=== PATIENT | female | born 1975 | race Caucasian/White ===

== ENCOUNTER 2016-11-22 09:37 | Emergency (ER) | payer OTHER ==
[~2016-11-22] VITALS: Ht 154.9 cm; Wt 67.7 kg
[~2016-11-22 09:37] MED LIST: HYDR25 PO; LORA0.5T PO; PROZ20CA11 PO
[2016-11-22 09:40] VITALS: BP 157/114; PULSE 119; RESP 16; TEMP 97.7; O2SAT 97
--- NOTE | 2016-11-22 09:51 | PD ---
HPI Chief Complaint: GI Complaint Time Seen by Provider: 09:44 Travel History International Travel<30 days: No Contact w/Intl Traveler<30days: No Traveled to known affect area: No History of Present Illness HPI The patient was seen and examined in the presence of the nurse. An alcoholic who had quit drinking but restarted drinking again. She drank a pint of vodka last night. Denies alcohol today. She complains of vomiting for 24 hours. Also having some diarrhea. No fever. Symptoms severity is moderate. No alleviating factors. PFSH Past Medical History Hx Anticoagulant Therapy: No Anxiety: Yes Diabetes: No Diminished Hearing: No Tetanus Vaccination: < 5 Years Influenza Vaccination: No ?: Not LMP: NOW Social History Alcohol Use: Yes (pint of vodka 24 hours ago) Tobacco Use: Yes Substance Use: No Allergies-Medications (Allergen,Severity, Reaction): Coded Allergies: No Known Allergies (Unverified , 11/22/16) Reported Meds & Prescriptions Reported Meds & Active Scripts Active No Active Prescriptions or Reported Medications Review of Systems General / Constitutional: No: Fever Eyes: No: Visual changes HENT: No: Headaches Cardiovascular: No: Chest Pain or Discomfort Respiratory: No: Shortness of Breath Gastrointestinal: Positive: Nausea, Vomiting, Diarrhea Genitourinary: No: Dysuria Musculoskeletal: No: Pain Skin: No Rash Neurologic: No: Weakness Psychiatric: Positive: Substance Abuse, No: Depression Endocrine: No: Polydipsia Hematologic/Lymphatic: No: Easy Bruising Physical Exam Narrative GENERAL: Well-nourished, well-developed patient with nausea and vomiting . SKIN: Focused skin assessment reveals no rash and nodules. Skin is Warm and dry. HEAD: Atraumatic. Normocephalic. EYES: Pupils equal and round. No scleral icterus. No injection or drainage. ENT: No nasal bleeding or discharge. Mucous membranes pink and moist. NECK: Trachea midline. No JVD. CARDIOVASCULAR: Regular rate and rhythm. No murmur appreciated. RESPIRATORY: No accessory muscle use. Clear to auscultation. Breath sounds equal bilaterally. GASTROINTESTINAL: Abdomen soft, non-tender, nondistended. Hepatic and splenic margins not palpable. MUSCULOSKELETAL: No obvious deformities. No clubbing. No cyanosis. No edema. NEUROLOGICAL: Awake and alert. No obvious cranial nerve deficits. Motor grossly within normal limits. Normal speech. PSYCHIATRIC: Appropriate mood and affect; insight and judgment poor. Data Data Last Documented VS Vital Signs Date Time Temp Pulse Resp B/P Pulse Ox O2 Delivery O2 Flow Rate FiO2 11/22/16 11:29 86 16 135/95 99 Room Air 11/22/16 09:40 97.7 Orders Iv Access Insert/Monitor (11/22/16 09:48) Complete Blood Count With Diff (11/22/16 09:48) Comprehensive Metabolic Panel (11/22/16 09:48) Beta Hcg (Quant/Titer) (11/22/16 09:48) Ondansetron Inj (Zofran Inj) (11/22/16 10:00) Sodium Chlor 0.9% 1000 Ml Inj (Ns 1000 M (11/22/16 10:00) Lipase (11/22/16 09:48) Lorazepam Inj (Ativan Inj) (11/22/16 10:45) Ondansetron Inj (Zofran Inj) (11/22/16 10:45) Morphine Inj (Morphine Inj) (11/22/16 10:45) Sodium Chlor 0.9% 1000 Ml Inj (Ns 1000 M (11/22/16 10:45) Alcohol (Ethanol) (11/22/16 09:57) Morphine Inj (Morphine Inj) (11/22/16 10:53) Labs Laboratory Tests Test 11/22/16 09:57 White Blood Count 11.0 TH/MM3 Red Blood Count 5.00 MIL/MM3 Hemoglobin 15.2 GM/DL Hematocrit 46.2 % Mean Corpuscular Volume 92.3 FL Mean Corpuscular Hemoglobin 30.5 PG Mean Corpuscular Hemoglobin 33.0 % Concent Red Cell Distribution Width 16.5 % Platelet Count 112 TH/MM3 Mean Platelet Volume 8.1 FL Neutrophils (%) (Auto) 87.2 % Lymphocytes (%) (Auto) 7.4 % Monocytes (%) (Auto) 4.9 % Eosinophils (%) (Auto) 0.2 % Basophils (%) (Auto) 0.3 % Neutrophils # (Auto) 9.7 TH/MM3 Lymphocytes # (Auto) 0.8 TH/MM3 Monocytes # (Auto) 0.5 TH/MM3 Eosinophils # (Auto) 0.0 TH/MM3 Basophils # (Auto) 0.0 TH/MM3 CBC Comment DIFF FINAL Differential Comment Sodium Level 141 MEQ/L Potassium Level 3.7 MEQ/L Chloride Level 100 MEQ/L Carbon Dioxide Level 17.2 MEQ/L Anion Gap 24 MEQ/L Blood Urea Nitrogen 9 MG/DL Creatinine 0.80 MG/DL Estimat Glomerular Filtration 80 ML/MIN Rate Random Glucose 76 MG/DL Calcium Level 9.0 MG/DL Total Bilirubin 1.6 MG/DL Aspartate Amino Transf 238 U/L (AST/SGOT) Alanine Aminotransferase 74 U/L (ALT/SGPT) Alkaline Phosphatase 91 U/L Total Protein 8.2 GM/DL Albumin 4.1 GM/DL Lipase 3093 U/L Human Chorionic Gonadotropin, LESS THAN 1 Quant MIU/ML Ethyl Alcohol Level 43 MG/DL [place] Medical Decision Making Medical Screen Exam Complete: Yes Emergency Medical Condition: Yes Medical Record Reviewed: Yes Differential Diagnosis Alcoholic ketosis, dehydration, pancreatitis Narrative Course I have reviewed the patient's electronic medical record. Patient's last visit here was 2014 IV placed CBC shows mild thrombocytopenia metabolic profile is normal LFT's are mildly elevated as expected lipase is 3000 I gave her 1 L normal saline IV bolus and 4 mg IV Zofran I gave her second liter normal saline IV bolus and a dose of IV Ativan and IV morphine and second dose of IV Zofran Patient is well-hydrated at this point Has mild alcohol-induced pancreatitis but not needing inpatient stay Alcohol level is 43 I do not believe she is in withdrawal She does have Librium at home to use if needed I recommended she utilize [facility] services but she does not want to do that Diagnosis Primary Impression: Pancreatitis, alcoholic, acute Qualified Code: K85.20 - Alcohol-induced acute pancreatitis without infection or necrosis Additional Instructions: The patient was advised to follow up with their physician and return if they worsen. The patient was warned about potential sedation for the medications they will receive on prescription. I have recommended clear liquids for 24 hours, then gradually advance as tolerated. Med/Other Pt SpecificInfo: Prescription(s) given Scripts Tramadol 50 Mg Tab50 Mg PO Q6H PRN (PAIN) #15 TAB Ref 0 Prov:Saroj Vides MD 11/22/16 Ondansetron (Zofran)4 Mg Tab4 Mg PO Q6HR PRN (NAUSEA OR VOMITING) #15 TAB Ref 0 Prov:Saroj Vides MD 11/22/16 Disposition: 01 DISCHARGE HOME Condition: Stable Saroj Vides MD Nov 22, 2016 09:51
[2016-11-22] MEDS ORDERED: ONDANSETRON HCL 4 MG/2 ML VIAL IVP ONE ×2 (10:00→10:45)
[2016-11-22] MEDS ORDERED: SODIUM CHLOR 0.9% 1000 ML INJ 1,000 ML IV ONE ×2 (10:00→10:45)
[2016-11-22 10:17] LABS: AUTOMATED NEUTROPHIL # 9.7 TH/MM3 (1.8-7.7); BASOPHIL % 0.3 % (0.0-2.0); EOSINOPHIL % 0.2 % (0.0-4.0); HEMATOCRIT 46.2 % (35.0-46.0); HEMO FLAGS DIFF FINAL; LYMPH % 7.4 % (9.0-44.0); LYMPHOCYTE # 0.8 TH/MM3 (1.0-4.8); MEAN CELL VOLUME 92.3 FL (80.0-100.0); MEAN CORPUSCULAR HEMOGLOBIN 30.5 PG (27.0-34.0); MONO % 4.9 % (0.0-8.0); NEUT % 87.2 % (16.0-70.0); PLATELET COUNT 112 TH/MM3 (150-450); RED CELL DISTRIBUTION WIDTH 16.5 % (11.6-17.2)
[2016-11-22 10:26] LABS: CHLORIDE 100 MEQ/L (98-107); POTASSIUM 3.7 MEQ/L (3.5-5.1); SODIUM (NA) 141 MEQ/L (136-145)
[2016-11-22 10:30] LABS: ANION GAP 24 MEQ/L (5-15); BICARBONATE 17.2 MEQ/L (21.0-32.0); BLOOD UREA NITROGEN 9 MG/DL (7-18)
[2016-11-22 10:32] LABS: ALT (GPT) 74 U/L (10-53); AST (GOT) 238 U/L (15-37)
[2016-11-22 10:33] LABS: GLOMERULAR FILTRATION RATE 80 ML/MIN (>89)
[2016-11-22 10:34] LABS: TOTAL BILIRUBIN ADULT 1.6 MG/DL (0.2-1.0)
[2016-11-22 10:35] LABS: ALKALINE PHOSPHATASE 91 U/L (45-117)
[2016-11-22 10:36] VITALS: BP 150/90; PULSE 99; RESP 16; O2SAT 99
[2016-11-22 10:38] LABS: BETA HCG QUANT LESS THAN 1 MIU/ML (0-5)
[2016-11-22] MEDS ORDERED: LORazepam 2 MG/ML VIAL IV PUSH ONE (10:45)
[2016-11-22] MEDS ORDERED: MORPHINE SULFATE 4 MG/ML INJ IV PUSH ONE (10:45)
[2016-11-22] MEDS ORDERED: MORPHINE SULFATE 8 MG/ML INJ ONE (10:53)
[2016-11-22 11:05] VITALS: BP 135/95; PULSE 98; RESP 16; O2SAT 98
[2016-11-22 11:29] VITALS: BP 135/95; PULSE 86; RESP 16; O2SAT 99
[2016-11-22] MEDS ORDERED: ZOFR4TAB PO (11:44)
[2016-11-22] MEDS ORDERED: TRAM50TA PO (11:44)
== END 2016-11-22 12:12 | disposition home or self-care (01) ==
LOC: PHED 09:37
DX: K85.20 Alcohol induced acute pancreatitis without necrosis or infection (principal); F10.20 Alcohol dependence, uncomplicated; R19.7 Diarrhea, unspecified; Y90.2 Blood alcohol level of 40-59 mg/100 ml
CPT/HCPCS: 80053; 80307; 83690; 84702; 85025; 96361; 96374; 96375; 96376; 99284; J2060; J2270; J2405; J7030

== ENCOUNTER 2016-12-27 10:31 | Emergency (ER) | payer OTHER ==
[~2016-12-27] VITALS: Ht 154.9 cm; Wt 70.0 kg
[~2016-12-27 10:31] MED LIST changes: -HYDR25 PO; -LORA0.5T PO; -PROZ20CA11 PO; +TRAM50TA PO; +ZOFR4TAB PO
[2016-12-27 10:45] VITALS: BP 99/63; PULSE 120; RESP 16; TEMP 98.1; O2SAT 99
--- NOTE | 2016-12-27 11:10 | PD ---
HPI Chief Complaint: GI Complaint Time Seen by Provider: 10:58 Travel History International Travel<30 days: Yes Contact w/Intl Traveler<30days: [place] Traveled to: [facility] Traveled to known affect area: No History of Present Illness HPI 41-year-old female complains of feeling shaky, nausea vomiting. Patient has history of EtOH abuse. Last drink was last night. Patient states that she started feeling shaky and nausea vomiting since last night. Patient states that she probably in Withdrawal. Patient denies any headache. Patient denies any chest pain or shortness of breath. Patient states that she has intermittent abdominal cramping. Patient denies any dysuria or frequency. Patient denies any vaginal discharge or bleeding. Patient denies any fever chills. PFSH Past Medical History Hx Anticoagulant Therapy: No Anxiety: Yes Diabetes: No Diminished Hearing: No Social History Alcohol Use: Yes (pint of vodka 24 hours ago) Tobacco Use: Yes Substance Use: No Allergies-Medications (Allergen,Severity, Reaction): Coded Allergies: No Known Allergies (Unverified , 12/27/16) Reported Meds & Prescriptions Reported Meds & Active Scripts Active Review of Systems General / Constitutional: No: Fever Eyes: No: Visual changes HENT: No: Headaches Cardiovascular: No: Chest Pain or Discomfort Respiratory: No: Shortness of Breath Gastrointestinal: Positive: Nausea, Vomiting, No: Abdominal Pain Genitourinary: No: Dysuria Musculoskeletal: No: Pain Skin: No Rash Neurologic: No: Weakness Psychiatric: No: Depression Endocrine: No: Polydipsia Hematologic/Lymphatic: No: Easy Bruising Physical Exam Narrative GENERAL: Well-nourished, well-developed patient. SKIN: Focused skin assessment warm/dry. HEAD: Normocephalic. EYES: No scleral icterus. No injection or drainage. NECK: Supple, trachea midline. No JVD or lymphadenopathy. CARDIOVASCULAR: Regular rate and rhythm without murmurs, gallops, or rubs. RESPIRATORY: Breath sounds equal bilaterally. No accessory muscle use. GASTROINTESTINAL: Abdomen soft, non-tender, nondistended. MUSCULOSKELETAL: No cyanosis, or edema. BACK: Nontender without obvious deformity. No CVA tenderness. Neurologic exam: Patient is awake and alert oriented 3. No obvious focal neurological deficit. Data Data Last Documented VS Vital Signs Date Time Temp Pulse Resp B/P Pulse Ox O2 Delivery O2 Flow Rate FiO2 8/16/17 12:27 96 143/100 99 12/27/16 11:52 18 12/27/16 10:45 98.1 Orders Complete Blood Count With Diff (12/27/16 11:02) Comprehensive Metabolic Panel (12/27/16 11:02) Lipase (12/27/16 11:02) Urinalysis - C+S If Indicated (12/27/16 11:02) Iv Access Insert/Monitor (12/27/16 11:02) Ecg Monitoring (12/27/16 11:02) Oximetry (12/27/16 11:02) Ed Urine Pregnancytest Poc (12/27/16 11:02) Sodium Chlor 0.9% 1000 Ml Inj (Ns 1000 M (12/27/16 11:15) Thiamine Inj (Thiamine Inj) (12/27/16 11:15) Lorazepam Inj (Ativan Inj) (12/27/16 11:15) Lorazepam Inj (Ativan Inj) (12/27/16 11:15) Ondansetron Inj (Zofran Inj) (12/27/16 11:15) Pantoprazole Inj (Protonix Inj) (12/27/16 11:15) Labs Laboratory Tests Test 12/27/16 11:08 White Blood Count 8.2 TH/MM3 Red Blood Count 5.18 MIL/MM3 Hemoglobin 15.1 GM/DL Hematocrit 47.9 % Mean Corpuscular Volume 92.3 FL Mean Corpuscular Hemoglobin 29.2 PG Mean Corpuscular Hemoglobin 31.6 % Concent Red Cell Distribution Width 15.2 % Platelet Count 207 TH/MM3 Mean Platelet Volume 7.8 FL Neutrophils (%) (Auto) 77.3 % Lymphocytes (%) (Auto) 12.9 % Monocytes (%) (Auto) 8.0 % Eosinophils (%) (Auto) 0.1 % Basophils (%) (Auto) 1.7 % Neutrophils # (Auto) 6.3 TH/MM3 Lymphocytes # (Auto) 1.1 TH/MM3 Monocytes # (Auto) 0.7 TH/MM3 Eosinophils # (Auto) 0.0 TH/MM3 Basophils # (Auto) 0.1 TH/MM3 CBC Comment DIFF FINAL Differential Comment Sodium Level 136 MEQ/L Potassium Level 4.3 MEQ/L Chloride Level 100 MEQ/L Carbon Dioxide Level 23.9 MEQ/L Anion Gap 12 MEQ/L Blood Urea Nitrogen 4 MG/DL Creatinine 0.85 MG/DL Estimat Glomerular Filtration 74 ML/MIN Rate Random Glucose 151 MG/DL Calcium Level 9.3 MG/DL Total Bilirubin 1.5 MG/DL Aspartate Amino Transf 248 U/L (AST/SGOT) Alanine Aminotransferase 99 U/L (ALT/SGPT) Alkaline Phosphatase 105 U/L Total Protein 7.9 GM/DL Albumin 3.7 GM/DL Lipase 410 U/L [facility] Medical Decision Making Medical Screen Exam Complete: Yes Emergency Medical Condition: Yes Interpretation(s) 13 37 PM. CBC within normal limit. Glucose 151. Total bili 1.5. AST 248. ALT 99. Lipase 410. Differential Diagnosis Differential diagnosis including alcohol withdrawal, impending DT, electrolyte abnormality. Narrative Course 41-year-old female feeling shaky and nausea vomiting. History of EtOH abuse. Patient probably in early withdrawal. Normal saline solution 1 L IV bolus. Thiamine 100 mg IV. Protonix 40 mg IV. Zofran 4 mg IV. Ativan 1 mg IV. Diagnosis Primary Impression: Alcohol withdrawal Qualified Code: F10.230 - Alcohol withdrawal syndrome without complication Patient Instructions: General Instructions Additional Instructions: Librium as needed. [facility] Return as needed. Med/Other Pt SpecificInfo: Prescription(s) given Scripts [Librium] No Conflict Check25 Mg PO TID #30 Prov:Ken Baker MD 12/27/16 Disposition: 01 DISCHARGE HOME Condition: Stable Ken Baker MD Dec 27, 2016 11:10
[2016-12-27 11:12] VITALS: O2SAT 98
[2016-12-27] MEDS ORDERED: SODIUM CHLOR 0.9% 1000 ML INJ 1,000 ML IV ONE (11:15)
[2016-12-27] MEDS ORDERED: LORazepam 2 MG/ML VIAL IV PUSH ONE ×2 (11:15)
[2016-12-27] MEDS ORDERED: THIAMINE INJ 100 MG in SODIUM CHLORIDE 0.9% INJ 100 ML IV ONE (11:15)
[2016-12-27] MEDS ORDERED: PANTOPRAZOLE SODIUM 40 MG VIAL IV PUSH ONE (11:15)
[2016-12-27] MEDS ORDERED: ONDANSETRON HCL 4 MG/2 ML VIAL IV PUSH ONE (11:15)
[2016-12-27 11:20] LABS: AUTOMATED NEUTROPHIL # 6.3 TH/MM3 (1.8-7.7); BASOPHIL # 0.1 TH/MM3 (0-0.2); BASOPHIL % 1.7 % (0.0-2.0); EOSINOPHIL % 0.1 % (0.0-4.0); HEMATOCRIT 47.9 % (35.0-46.0); HEMO FLAGS DIFF FINAL; LYMPH % 12.9 % (9.0-44.0); LYMPHOCYTE # 1.1 TH/MM3 (1.0-4.8); MEAN CELL VOLUME 92.3 FL (80.0-100.0); MEAN CORPUSCULAR HEMOGLOBIN 29.2 PG (27.0-34.0); MEAN CORPUSCULAR HGB CONC 31.6 % (32.0-36.0); NEUT % 77.3 % (16.0-70.0); PLATELET COUNT 207 TH/MM3 (150-450); RED BLOOD COUNT 5.18 MIL/MM3 (4.00-5.30); RED CELL DISTRIBUTION WIDTH 15.2 % (11.6-17.2); WHITE BLOOD COUNT 8.2 TH/MM3 (4.0-11.0)
[2016-12-27 11:28] LABS: CHLORIDE 100 MEQ/L (98-107); POTASSIUM 4.3 MEQ/L (3.5-5.1); SODIUM (NA) 136 MEQ/L (136-145)
[2016-12-27 11:31] LABS: ANION GAP 12 MEQ/L (5-15); BICARBONATE 23.9 MEQ/L (21.0-32.0)
[2016-12-27 11:32] LABS: BLOOD UREA NITROGEN 4 MG/DL (7-18)
[2016-12-27 11:34] LABS: ALT (GPT) 99 U/L (10-53); AST (GOT) 248 U/L (15-37)
[2016-12-27 11:35] LABS: GLOMERULAR FILTRATION RATE 74 ML/MIN (>89)
[2016-12-27 11:36] LABS: TOTAL BILIRUBIN ADULT 1.5 MG/DL (0.2-1.0)
[2016-12-27 11:37] LABS: ALKALINE PHOSPHATASE 105 U/L (45-117)
[2016-12-27 11:52] VITALS: BP 158/95; PULSE 99; RESP 18; O2SAT 99
[2016-12-27 12:27] VITALS: BP 143/100; PULSE 96; O2SAT 99
[2016-12-27] MEDS ORDERED: LIBRIUM PO (13:50)
[2016-12-27 14:14] VITALS: BP 136/86; PULSE 92; O2SAT 98
== END 2016-12-27 14:21 | disposition home or self-care (01) ==
LOC: PHED 10:31
DX: F10.230 Alcohol dependence with withdrawal, uncomplicated (principal); R11.2 Nausea with vomiting, unspecified; Z72.0 Tobacco use; Z86.59 Personal history of other mental and behavioral disorders
CPT/HCPCS: 80053; 83690; 84703; 85025; 96365; 96375; 96376; 99284; C9113; J2060; J2405; J3411; J7030